=== PATIENT | female | born 1955 | race African-American/Black ===

== ENCOUNTER 2019-12-08 00:44 | Observation (INO) | payer MEDICARE, MEDICAID ==
[~2019-12-08] VITALS: Ht 160 cm; Wt 85.0 kg
--- NOTE | 2019-12-08 00:53 | NUR ---
Patient BIB ambulance as a xfer from [facility]. Patient went to the ER c/o left flank pain. Patient is to have a follow up CT tomorrow to differentiate between diverticulosis and diverticulitis according to EMS. Patient was xfer to [facility] due to high risk history including aortic aneurysm. [employer] patient received Fentanyl, Flagyl, Levaquin, Zofran, Insulin, and Labetolol. Patient currently has 5/10 left flank pain which is tolerable for her. Patient denies N/V. Patient is in NAD. Respirations even and unlabored.
--- NOTE | 2019-12-08 01:12 | NUR ---
Pt alert and resting on gurney. VSS. Pt aware of plan for new set of labs and admit.
[2019-12-08] MEDS ORDERED: HYDROmorphone 2 MG/ML, 1ML ONE ×2 (01:46→02:56)
[2019-12-08 01:48] LABS: BASOPHILS # (AUTO) 0.03 x10^3/uL (0-0.1); BASOPHILS % (AUTO) 0 % (0-1); EOSINOPHILS # (AUTO) 0.22 x10^3/uL (0-0.4); EOSINOPHILS % (AUTO) 3 % (1-7); LYMPHOCYTES # (AUTO) 2.74 x10^3/uL (1-3.4); LYMPHOCYTES % (AUTO) 35 % (22-44); MD NO; MEAN CORPUSCULAR HEMOGLOBIN 29.7 pg (27.0-34.8); MEAN CORPUSCULAR HGB CONC 33.6 g/dL (32.4-35.8); MEAN CORPUSCULAR VOLUME 88.3 fL (80-100); MEAN PLATELET VOLUME 8.2 fL (7.4-10.4); MONOCYTES # (AUTO) 0.46 x10^3/uL (0.2-0.8); MONOCYTES % (AUTO) 6 % (2-9); NEUTROPHILS % (AUTO) 57 % (42-75); PLATELET COUNT 197 x10^3/uL (130-400); RED BLOOD COUNT 4.72 x10^6/uL (3.82-5.3); RED CELL DISTRIBUTION WIDTH 13.5 % (9.6-15.2)
[2019-12-08] MEDS ORDERED: ONDANSETRON 2MG/ML, 2ML ONE (01:48)
[2019-12-08] MEDS: HYDROmorphone 2 MG/ML, 1ML IVPush PRN ×2 (01:57→03:00)
[2019-12-08] MEDS ORDERED: LISI-167 PO (01:59)
[2019-12-08] MEDS ORDERED: METF500T17 PO (01:59)
[2019-12-08] MEDS ORDERED: ONDANSETRON 2MG/ML, 2ML IVPush ONE (02:00)
[2019-12-08 02:01] LABS: ALANINE AMINOTRANSFERASE 13 U/L (12-78); ANION GAP 7 mmol/L (5-15); CALCIUM 8.5 mg/dL (8.5-10.1); CHLORIDE 104 mmol/L (98-107); CREATININE 0.97 mg/dL (0.55-1.02)
[2019-12-08 02:03] LABS: ALKALINE PHOSPHATASE 85 U/L (45-117); BILIRUBIN,TOTAL 0.4 mg/dL (0.2-1.0); TOTAL PROTEIN 6.4 g/dL (6.4-8.2)
--- NOTE | 2019-12-08 02:09 | NUR ---
Pt medicated per JUN. Pt reports hives with morphine admin. Pt remains on pulse ox/HR monitor. Pt noted to desat to 87% after dilaudid admin. Pt placed on 1.5L NC. Pt denies needs. Call light within reach.
[2019-12-08] MEDS ORDERED: ONDANSETRON 2MG/ML, 2ML IVPush PRN ×2 (02:30→03:00)
[2019-12-08] MEDS ORDERED: MORPHINE SULFATE 4 MG/ML, 1ML IVPush PRN (02:30)
[2019-12-08] MEDS ORDERED: SODIUM CHLORIDE 0.9% 1,000 ML IV SCH (02:46)
[2019-12-08] MEDS ORDERED: ACETAMINOPHEN 325 MG TABLET PO PRN (03:00)
[2019-12-08] MEDS ORDERED: HYDROcodone/APAP 5/325 TABLET PO PRN (03:00)
[2019-12-08] MEDS ORDERED: morphine SULFATE 10 MG/ML, 1ML IVPush PRN (03:00)
[2019-12-08] MEDS ORDERED: BISACODYL 10 MG SUPP PR PRN (03:00)
--- NOTE | 2019-12-08 03:15 | NUR ---
Pt updated on status. Pt given oral swabs and is aware she is NPO. VSS. Spoke with admitting MD about reported allergy to morphine and alterantives for pain control when on floor. Dr. Barnett stated she will look into it.
--- NOTE | 2019-12-08 03:23 | NUR ---
Pt transported to floor. Condition unchanged.
[2019-12-08] MEDS ORDERED: HYDROmorphone 1 MG/ML, 1ML INJ IM PRN (03:30)
[2019-12-08 03:42] VITALS: BP 115/64
[2019-12-08 06:54] VITALS: BP 122/70
[2019-12-08] MEDS: INSULIN REGULAR 100 UNITS/ML, 3ML VIAL SQ-INSULIN SCH ×2 (08:47→12:12)
[2019-12-08] MEDS ORDERED: LISINOPRIL 10 MG TABLET PO SCH (09:00)
[2019-12-08] MEDS ORDERED: metFORMIN 500 MG TABLET PO SCH (09:00)
[2019-12-08] MEDS: HYDROmorphone 1 MG/ML, 1ML INJ IV PRN ×2 (09:04→13:19)
[2019-12-08] MEDS ORDERED: INSU100V5 SQ-INSULIN (13:15)
[2019-12-08] MEDS ORDERED: INSU100I13 SQ-INSULIN (13:15)
[2019-12-08 13:18] VITALS: BP 129/86
[2019-12-08] MEDS ORDERED: INSULIN GLARGINE 100 UNITS/ML, PEN SQ-INSULIN SCH (21:00)
== END 2019-12-08 19:00 | disposition home or self-care (01) ==
LOC: ED 01:08 → INTOOBSV 02:53 → EDIP 02:53 → 3N 03:29
PROVIDERS: ADMIT Family Medicine; ATTEND Hospitalist
DX: R10.9 Unspecified abdominal pain (principal); I71.03 Dissection of thoracoabdominal aorta; E11.65 Type 2 diabetes mellitus with hyperglycemia; I10 Essential (primary) hypertension; M48.00 Spinal stenosis, site unspecified; I25.2 Old myocardial infarction; F32.9 Major depressive disorder, single episode, unspecified; F17.200 Nicotine dependence, unspecified, uncomplicated; Z86.79 Personal history of other diseases of the circulatory system; Z79.899 Other long term (current) drug therapy; Z79.84 Long term (current) use of oral hypoglycemic drugs; Z87.442 Personal history of urinary calculi; Z90.710 Acquired absence of both cervix and uterus
CPT/HCPCS: 36415; 74176; 80053; 82962; 83036; 83605; 85025; 96361; 96372; 96374; 96375; 96376; 99284; G0378; J1170; J1815; J2405; J7030